=== PATIENT | female | born 1970 | race Caucasian/White ===

== ENCOUNTER 2019-03-21 08:05 | Outpatient (CLI) | payer BC ==
--- NOTE | 2019-03-21 09:41 | RAD ---
Esophagram HISTORY: Dysphagia. Prior bariatric surgery. FINDINGS: There is a lap band at the GE junction is in good radiographic position. Single column barium evaluation shows normal primary and secondary peristalsis of the stomach. No nidhi dence of obstruction. GE junction is widely patent. A small amount of gastroesophageal reflux was demonstrated with patient supine. Fluoroscopy time 0.9 minutes. IMPRESSION: Lap band in place. No evidence of acute complication or obstruction. Small amount of gastroesophageal reflux.
== END 2019-03-21 08:06 | disposition home or self-care (01) ==
LOC: RAD 08:05
PROVIDERS: ATTEND Surgery
DX: K21.9 Gastro-esophageal reflux disease without esophagitis (principal); Z98.84 Bariatric surgery status
CPT/HCPCS: 74220

== ENCOUNTER 2019-04-02 15:52 | Outpatient (CLI) | payer BC | END 2019-04-02 15:53 | disposition home or self-care (01) | LOC: DTY/OP 15:52 | PROVIDERS: ATTEND Surgery | DX: E66.01 Morbid (severe) obesity due to excess calories (principal) | CPT/HCPCS: 97802 ==

== ENCOUNTER 2019-04-27 10:18 | Outpatient (CLI) | payer BC ==
--- NOTE | 2019-04-27 16:36 | RAD ---
XR Chest Pa Lat STANDARD HISTORY: Preop COMPARISON: None. FINDINGS: Heart size and mediastinum are within normal limits. The lungs are clear of infiltrates. A gastric band is incidentally seen. There are arthritic changes of the spine. IMPRESSION: No active intrathoracic disease.
[2019-04-27 17:06] LABS: #Basophils 0.1 thou/uL (0.0-0.2); #Eosinphils 0.2 thou/uL (0.0-0.7); #Lymphocytes 3.3 thou/uL (1.20-3.40); #Monocytes 0.7 thou/uL (0.11-0.59); #Neutrophils 4.2 thou/uL (1.40-6.50); %Basophils 0.8 % (0.0-1.0); %Eosinophils 2.1 % (0.0-10.0); %Lymphocytes 39.3 % (21.0-51.0); %Monocytes 7.8 % (0.0-10.0); %Neutrophils 49.9 % (42.0-75.0); Hemoglobin 14.1 g/dL (12.0-16.0); Mean Corpuscular HGB CONC 33.1 g/dL (32.0-36.0); Mean Corpuscular Hemoglobin 32.2 pg (27.0-31.0); Mean Corpuscular Volume 97.3 fL (78.0-98.0); Mean Platelet Volume 6.8 fL (7.4-10.4); Platelet Count 325 thou/uL (130-400); RBC Distribution Width 12.3 % (11.5-14.5); Red Blood Cell (RBC) Count 4.37 mill/uL (4.20-5.40); White Blood Cell (WBC) Count 8.3 thou/uL (4.8-10.8)
[2019-04-27 17:11] LABS: BHCG - Serum Negative (NEGATIVE); Pregs Control Background? CLEAR/WHITE (CLR/WHITE); Pregs Control Bar Appear? YES (CONTROL BAR)
[2019-04-27 17:18] LABS: Hemoglobin A1c 5.2 % (4.0-6.0)
[2019-04-27 17:37] LABS: ALT (SGPT) 19 U/L (8-55); AST (SGOT) 20 U/L (5-34); Albumin 4.4 g/dL (3.5-5.0); Alkaline Phosphatase 69 U/L (40-150); Anion Gap 7 mmol/L (10-20); BUN (Urea Nitrogen) 25 mg/dL (7.0-18.7); Bilirubin, Direct 0.2 mg/dL (0.1-0.3); Bilirubin, Total 0.5 mg/dL (0.2-1.2); Calc. Creatinine Clearance 0 mL/min (70-130); Calcium 9.3 mg/dL (7.8-10.44); Carbon Dioxide 25 mmol/L (22-29); Chloride 100 mmol/L (98-107); Estimated GFR-MDRD 76; Globulin 2.8 g/dL (2.4-3.5); Glucose 85 mg/dL (70-105); Potassium 3.6 mmol/L (3.5-5.1); Protein, Total 7.2 g/dL (6.0-8.3); Sodium 128 mmol/L (136-145)
== END 2019-04-27 10:19 | disposition home or self-care (01) ==
LOC: LABBT 10:18
PROVIDERS: ATTEND Surgery
DX: Z01.818 Encounter for other preprocedural examination (principal); E66.01 Morbid (severe) obesity due to excess calories
CPT/HCPCS: 71046; 80053; 80076; 83036; 84703; 85025; 93005; 93010

== ENCOUNTER 2019-04-27 15:15 | Inpatient (IN) | payer BC ==
[2019-04-27 15:42] VITALS: BMI 33.7
[2019-05-02] MEDS ORDERED: Heparin 5,000 UNITS/ML VIAL ONE (07:59)
[2019-05-02] MEDS ORDERED: ceFAZolin Sodium (SDC) 2 GM/100 ML BAG ONE (07:59)
[2019-05-02] MEDS ORDERED: Bupivacaine/Epinephrine 0.25% 30 ML VIAL ONE (08:05)
[2019-05-02] MEDS ORDERED: Ondansetron HCl/PF 4 MG/2 ML Vial IVP PRN ×2 (08:26→10:33)
[2019-05-02] MEDS ORDERED: Promethazine HCl 25 MG/ML VIAL SLOW IVP PRN ×2 (08:26→10:33)
[2019-05-02] MEDS ORDERED: Promethazine HCl 25 MG/ML VIAL IM PRN ×4 (08:26→11:35)
[2019-05-02] MEDS ORDERED: Fentanyl 100 MCG/2 ML VIAL ONE ×3 (08:38→11:45)
[2019-05-02] MEDS ORDERED: Midazolam HCl 2 mg/2 ml Vial ONE (08:46)
[2019-05-02] MEDS ORDERED: Ketorolac Tromethamine 30 MG/ML VIAL IVP PRN (10:33)
[2019-05-02] MEDS ORDERED: HYDROmorphone 2 MG/ML VIAL SLOW IVP PRN (10:33)
[2019-05-02] MEDS ORDERED: Meperidine HCl/PF 25 MG/ML VIAL SLOW IVP PRN (10:33)
[2019-05-02] MEDS ORDERED: Promethazine HCl 25 MG/ML VIAL ONE (11:07)
[2019-05-02] MEDS ORDERED: hydrALAZINE 20 MG/ML VIAL SLOW IVP PRN (11:11)
[2019-05-02] MEDS ORDERED: diphenhydrAMINE 50 MG/ML VIAL IVP PRN ×2 (11:11→11:35)
[2019-05-02] MEDS ORDERED: Dextrose 5% in Water 1,000 ML IV PRN (11:11)
[2019-05-02] MEDS ORDERED: Hydrocodone-Acetamin 15 ML UDCUP PO PRN (11:11)
[2019-05-02] MEDS ORDERED: Dextrose 50% Abboject 50 ML SYRINGE SLOW IVP PRN (11:11)
[2019-05-02] MEDS ORDERED: Ondansetron PF 4 MG/2 ML Vial IVP PRN ×2 (11:11→11:35)
[2019-05-02] MEDS ORDERED: CEFAZOLIN 2 GM in Premix Bag 1 BAG IVPB SCH (11:15)
[2019-05-02] MEDS ORDERED: D5 1/2 NS w/20 mEq KCL 1,000 ML ONE (11:24)
[2019-05-02] MEDS ORDERED: Naloxone HCl 0.4 mg/ml Vial IV PRN (11:35)
[2019-05-02] MEDS ORDERED: Zolpidem Tartrate 5 MG TAB PO PRN (11:35)
[2019-05-02] MEDS ORDERED: fentaNYL Citrate/PF 2,000 MCG in Sodium Chloride 0.9% 60 ML IV PRN (11:35)
[2019-05-02] MEDS ORDERED: diphenhydrAMINE 25 MG CAP PO PRN (11:35)
[2019-05-02] MEDS ORDERED: diphenhydrAMINE 50 MG/ML VIAL IM PRN (11:35)
[2019-05-02] MEDS ORDERED: Communication Order-Pharmacy FS SCH (11:45)
[2019-05-02] MEDS ORDERED: HYDROmorphone 2 MG/ML VIAL ONE (11:57)
--- NOTE | 2019-05-02 12:29 | OP ---
DATE OF PROCEDURE: 05/02/2019 PREOPERATIVE DIAGNOSES: Morbid obesity, lap band intolerance, hiatal hernia. PROCEDURE PERFORMED: Laparoscopic removal of lap band and port, hiatal hernia repair, sleeve gastrectomy, and esophagogastroduodenoscopy. INDICATIONS: The patient is a 48-year-old female, who had a lap band placed in about 2008 and has been intolerant of. She cannot tolerate any fluid restriction. She gets excessive nausea and vomiting reflux. As such, she has regained her weight. FINDINGS: She had a moderate-sized hiatal hernia. There was quite a bit of adhesions. A 38-Bel[place]ian bougie used. DESCRIPTION OF PROCEDURE: After informed consent was obtained, the patient was taken to the operating room, given general endotracheal anesthesia. She was placed in the supine position. Abdomen was prepped and draped in usual fashion. Local anesthesia was infiltrated subcutaneously and deep. A 12-mm incision was performed 8 inches above the xiphoid slightly to the left. A Veress needle was inserted. Drop test was performed. Pneumoperitoneum was created to a volume of 2 L of carbon dioxide. Using a bladeless 12-mm trocar and 0-degree laparoscope, direct visual entry into the abdominal cavity was performed. Pneumoperitoneum was then created to a pressure of 15 mmHg and the patient placed in steep reverse Trendelenburg position. A Aiyana liver retractor was inserted. Left lobe of liver retracted superiorly. The pylorus was identified. A 12-mm port placed on the right beneath it and two 12s placed left subcostal, one of which was where the port was. The lap band tubing was identified and divided sharply. Then, the tubing was tracked down to the buckle and dissected out using blunt and sharp dissection. The capsule was incised sharply with the LigaSure circumferentially and the lap band removed from around the stomach. The lap band was then actually removed from the abdomen. Then, the omentum was taken off the greater curvature 5 cm from the pylorus utilizing the LigaSure. Short gastrics divided with the LigaSure and left crura defined with the LigaSure. She was noted to have a hiatal hernia, so the right crura was also defined and a subesophageal plane was developed to expose the posterior crural. A 38-[place]ian bougie was inserted and a posterior crural plication was performed using 0 Ethibond in the Sew-Right and Ti-Knot device. Then, the bougie was directed into the antrum and the linear 60 mm green load stapler used to divide the antrum to the bougie, gold load along the bougie, and a series of blue, then another gold near where the band had been and finally another blue load. Intraoperative endoscopy was then performed. The video endoscope was inserted under direct vision and advanced into the sleeve. The staple line was inspected. There was no bleeding. Staple line was then tested by inflating the new stomach with pressurized air under water, there was no air leak. Stomach was decompressed. Scope was removed. At this point, the lap band port was dissected out, removed. Then, the remnant stomach was removed from the abdomen through this lap band port site and sent to Pathology for further analysis. The fascia was closed with 0 Vicryl suture and the GraNee needle. The wounds were thoroughly irrigated. Hemostasis was assured. Trocars and retractors were removed. Skin was closed with interrupted 4-0 Rapide. Dermabond applied. The patient tolerated the procedure well, transferred to Recovery in good condition. Sponge and needle count verified correct x2. Job ID: [id number]
[2019-05-02] MEDS: Ketorolac Tromethamine 30 MG/ML VIAL IVP SCH ×3 (15:39→23:24)
[2019-05-02] MEDS: D5 1/2 NS w/20 mEq KCL 1,000 ML IV SCH ×3 (15:39→21:24)
[2019-05-02] MEDS: CEFAZOLIN 2 GM in Sodium Chloride 0.9% 100 ML IVPB SCH ×2 (16:07→23:24)
[2019-05-03 04:29] LABS: #Lymphocytes 1.5 thou/uL (1.20-3.40); #Monocytes 1.2 thou/uL (0.11-0.59); #Neutrophils 11.7 thou/uL (1.40-6.50); %Basophils 0.1 % (0.0-1.0); %Eosinophils 0.1 % (0.0-10.0); %Lymphocytes 10.5 % (21.0-51.0); %Monocytes 8.2 % (0.0-10.0); %Neutrophils 81.2 % (42.0-75.0); Hemoglobin 11.9 g/dL (12.0-16.0); Mean Corpuscular HGB CONC 33.6 g/dL (32.0-36.0); Mean Corpuscular Hemoglobin 32.9 pg (27.0-31.0); Mean Corpuscular Volume 97.9 fL (78.0-98.0); Mean Platelet Volume 6.4 fL (7.4-10.4); Platelet Count 277 thou/uL (130-400); RBC Distribution Width 12.4 % (11.5-14.5); Red Blood Cell (RBC) Count 3.63 mill/uL (4.20-5.40); White Blood Cell (WBC) Count 14.3 thou/uL (4.8-10.8)
[2019-05-03 04:44] LABS: Anion Gap 10 mmol/L (10-20); BUN (Urea Nitrogen) 10 mg/dL (7.0-18.7); Calc. Creatinine Clearance 118 mL/min (70-130); Calcium 9.1 mg/dL (7.8-10.44); Carbon Dioxide 26 mmol/L (22-29); Chloride 105 mmol/L (98-107); Estimated GFR-MDRD 74; Glucose 146 mg/dL (70-105); Sodium 136 mmol/L (136-145)
[2019-05-03] MEDS: Ketorolac Tromethamine 30 MG/ML VIAL IVP SCH ×2 (05:35→11:47)
[2019-05-03] MEDS: D5 1/2 NS w/20 mEq KCL 1,000 ML IV SCH (05:49)
[2019-05-03] MEDS ORDERED: Pantoprazole 40 MG VIAL IVP SCH (09:00)
[2019-05-03] MEDS ORDERED: Enoxaparin Sodium 40 MG/0.4 ML SYRINGE SC SCH (09:00)
--- NOTE | 2019-05-03 09:12 | RAD ---
EXAM: XR UGI Single Contrast No Air PROVIDED CLINICAL HISTORY: Patient is post to recent removal of the gastric band and gastric sleeve procedure with repair of hia enrique hernia. COMPARISON: 03/21/2019 FINDINGS: Approximately 15 mL of Gastrografin was administered by mouth. There is significant holdup of contras t seen within the region of the GE junction. A small amount of contrast extends into the stomach and subsequently into the small bowel after 25 minutes with persistent contrast seen above the level of the GE junction. There is no extravasation of contrast seen to suggest a leak. Multiple surgical clips are seen in the epigastric region. Gastric band seen on prior study on 03/21/2019 is no longer v isualized on this exam. IMPRESSION: Post surgical changes related to gastric sleeve procedure. There is significant holdup of contrast pr oximal to the level of the GE junction which may be related to edema in this region secondary to recent surgery. There is no extravasation of contrast seen to suggest a leak. Findings were discussed with Dr. Solo on 05/03/2019 at 0908 hours.
[2019-05-03] MEDS ORDERED: HYDROcodone/Acetaminophen 7.5/325 mg Tablet PO PRN (10:29)
[2019-05-03] MEDS ORDERED: Hydrocodone-Acetamin 15 ML UDCUP PO PRN (11:11)
[2019-05-03 11:29] VITALS: BP 109/74; TEMP 98.1
--- NOTE | 2019-05-04 04:45 | DIS ---
DATE OF ADMISSION: 05/02/2019 DATE OF DISCHARGE: 05/03/2019 DISCHARGE DIAGNOSES: Lap band intolerance, morbid obesity, hiatal hernia. HOSPITAL COURSE: The patient was admitted, taken to the operating room where she underwent a sleeve gastrectomy, removal of band and port, and repair of hiatal hernia. Postoperatively, she has done well. Her swallow showed quite a bit of edema, but she is tolerating liquids well. Pain is controlled on p.o. medications. She is discharged home on hydrocodone and Zofran. She will follow up with me in 2 weeks. Job ID: [id number]
== END 2019-05-03 15:40 | disposition home or self-care (01) | DRG 621 ==
LOC: SURG A 05-02 07:18 → SURG B 05-02 12:29
PROVIDERS: ADMIT Surgery; ATTEND Surgery
PROC: 0DB64Z3 Excision of Stomach, Percutaneous Endoscopic Approach, Vertical (ICD-10-PCS; principal; 2019-05-02)
PROC: 0DP64CZ Removal of Extraluminal Device from Stomach, Percutaneous Endoscopic Approach (ICD-10-PCS; 2019-05-02)
PROC: 0BQT4ZZ Repair Diaphragm, Percutaneous Endoscopic Approach (ICD-10-PCS; 2019-05-02)
DX: E66.01 Morbid (severe) obesity due to excess calories (principal); K44.9 Diaphragmatic hernia without obstruction or gangrene; Z87.891 Personal history of nicotine dependence; Z68.33 Body mass index [BMI] 33.0-33.9, adult
CPT/HCPCS: 36415; 74241; 80048; 85025; 88307; 88312; 94760; C9113; J0690; J1170; J1644; J1650; J1885; J2250; J2550; J3010; J3490

== ENCOUNTER 2023-08-01 14:16 | Outpatient (CLI) | payer BC | END 2023-08-01 14:17 | disposition home or self-care (01) | LOC: BICRAD 14:16 | DX: M19.042 Primary osteoarthritis, left hand (principal); M19.041 Primary osteoarthritis, right hand ==